=== PATIENT | male | born 1975 | race Caucasian/White ===

== ENCOUNTER 2022-12-04 20:54 | Emergency (ER) | payer BC, OTHER ==
[~2022-12-04] VITALS: Ht 188 cm; Wt 108.4 kg
[2022-12-04 21:24] LABS: BASOPHILS % (AUTO) 0.3 % (0.0-5.0); EOSINOPHILS % (AUTO) 0.4 % (0.0-8.0); HEMATOCRIT 45.5 % (42-54); LYMPHOCYTES % (AUTO) 25.3 % (21.0-51.0); MEAN CORPUSCULAR HEMOGLOBIN 31.2 pg (27.0-33.0); MEAN CORPUSCULAR HGB CONC 34.7 g/dL (32.0-36.0); MEAN CORPUSCULAR VOLUME 89.9 fL (79-99); MONOCYTES % (AUTO) 11.3 % (3.0-13.0); NEUTROPHILS % (AUTO) 62.2 % (40.0-77.0); PLATELET COUNT (AUTO) 263 K/uL (130-400); RED BLOOD CELL COUNT(AUTO) 5.06 MIL/uL (4.50-6.20); RED CELL DISTRIBUTION WIDTH 11.9 % (11.0-15.5); WHITE BLOOD COUNT (AUTO) 12.7 K/uL (4.8-10.8)
[2022-12-04] MEDS ORDERED: ASPIRIN 325MG TAB PO ONE (21:30)
[2022-12-04] MEDS: LORAZEPAM 2 MG/ML 1 ML VIAL IVP ONE ×2 (21:32→21:40)
[2022-12-04 21:49] LABS: B-TYPE NATRIURETIC PEPTIDE 8 pg/mL (0-100)
[2022-12-04 21:59] LABS: ALANINE AMINOTRANSFERASE 36 U/L (12-78); CARBON DIOXIDE 27 mmol/L (21-32); CHLORIDE 99 mmol/L (101-111); CREATINE KINASE, TOTAL 233 U/L (21-232); CREATININE 0.9 mg/dL (0.5-1.5); GLOMERULAR FILTR. RATE CALC 107 mL/min (>90); GLUCOSE,RANDOM 115 mg/dL (70-105); MYOGLOBIN 34 ng/mL (10-92); POTASSIUM 5.2 mmol/L (3.5-5.1); SODIUM SERUM 133 mmol/L (136-145); UREA NITROGEN, BLOOD 18 mg/dL (7-18)
[2022-12-04] MEDS ORDERED: HYDROXYZINE 25 MG TABLET PO ONE (22:00)
[2022-12-04 22:07] LABS: ASPARTATE AMINOTRANSFERASE 46 U/L (10-37)
[2022-12-04] MEDS ORDERED: HYDR50CA50 PO (22:46)
[2022-12-04] MEDS ORDERED: CALCIUM GLUC 1GM/10ML VIAL ONE (22:47)
[2022-12-04] MEDS ORDERED: KAYEXALATE 15GM/60ML PO ONE (23:00)
[2022-12-04 23:30] VITALS: BP 132/68
== END 2022-12-04 23:30 | disposition home or self-care (01) ==
LOC: EDH 20:54
DX: R00.2 Palpitations (principal); E87.5 Hyperkalemia; F41.9 Anxiety disorder, unspecified; I10 Essential (primary) hypertension; E78.00 Pure hypercholesterolemia, unspecified
CPT/HCPCS: 99284; 84443; 82550; 83735; 83874; 84484; 80053; 83880; 85025; 85378; 36415; 71045; 93005; J0610; J2060

== ENCOUNTER → 2023-11-27 | Outpatient (CLI) | payer OTHER ==
[~2023-11-27] MED LIST: HYDR50CA50 PO
== END | disposition home or self-care (01) ==
LOC: RAH 09:35
PROVIDERS: ATTEND Internal Medicine Gastroenterology
DX: K57.10 Diverticulosis of small intestine without perforation or abscess without bleeding (principal); K44.9 Diaphragmatic hernia without obstruction or gangrene; R10.13 Epigastric pain
CPT/HCPCS: 74240